=== PATIENT | male | born 1965 | race Native Hawaiian/Other Pacific Islander ===

== ENCOUNTER 2018-08-22 14:32 | Outpatient (CLI) | payer OTHER | END 2018-08-22 19:21 | disposition home or self-care (01) | LOC: RAD 14:32 | DX: R05 Cough (principal); J44.0 Chronic obstructive pulmonary disease with (acute) lower respiratory infection ==

== ENCOUNTER 2019-10-02 11:12 | Outpatient (CLI) | payer OTHER ==
[2019-10-02 11:35] LABS: PLATELET COUNT 240 K/uL (142-355)
[2019-10-02 11:51] LABS: SODIUM 137 mmol/L (136-145)
== END 2019-10-02 21:52 | disposition home or self-care (01) ==
LOC: LABW 11:12
PROVIDERS: Internal Medicine
DX: I10 Essential (primary) hypertension (principal)
CPT/HCPCS: 36415; 80053; 80061; 81000; 84439; 84443; 85027